=== PATIENT | female | born 1940 | race Caucasian/White ===

== ENCOUNTER 2023-02-14 16:02 | Outpatient (CLI) | payer MEDICARE, BC, OTHER | END 2023-02-14 16:03 | disposition home or self-care (01) | LOC: CSHMAMMO 16:02 | PROVIDERS: ATTEND Family Medicine | DX: M85.851 Other specified disorders of bone density and structure, right thigh (principal); M85.852 Other specified disorders of bone density and structure, left thigh; M81.0 Age-related osteoporosis without current pathological fracture | CPT/HCPCS: 77080 ==